=== PATIENT | male | born 1990 | race African-American/Black ===

== ENCOUNTER 2017-09-30 11:55 | Emergency (ER) | payer OTHER ==
[~2017-09-30] VITALS: Ht 165.1 cm; Wt 83.0 kg
[2017-09-30 12:02] VITALS: BP 146/70
--- NOTE | 2017-09-30 13:50 | REP ---
Clinical: Pain. Technique: AP, lateral, bilateral oblique views right foot . Findings: The osseous structures and joint spaces are intact and normal. There is no evidence for acute fracture or dislocation. Surrounding soft tissues are unremarkable. No subcutaneous emphysema or radiodense foreign body. Impression: Normal right foot series. No acute fracture or dislocation. Signed by George Park MD 09/30/2017 01:42 P
== END 2017-09-30 13:39 | disposition home or self-care (01) ==
LOC: M ED 11:55
DX: S96.911A Strain of unspecified muscle and tendon at ankle and foot level, right foot, initial encounter (principal); X50.9XXA Other and unspecified overexertion or strenuous movements or postures, initial encounter; Y92.89 Other specified places as the place of occurrence of the external cause; Y93.61 Activity, american tackle football; Y99.8 Other external cause status